=== PATIENT | male | born 1995 | race Caucasian/White ===

== ENCOUNTER → 2020-06-25 | Outpatient (CLI) | payer OTHER | END | disposition home or self-care (01) | LOC: STAR 15:07 | PROVIDERS: ATTEND Orthopaedic Surgery | DX: Z20.828 Contact with and (suspected) exposure to other viral communicable diseases (principal) | CPT/HCPCS: 87635 ==

== ENCOUNTER 2020-06-29 13:57 | Day surgery (SDC) | payer OTHER ==
[~2020-06-29] VITALS: Ht 190.5 cm; Wt 86.3 kg
[2020-06-29] MEDS ORDERED: NO MEDS PER PATIENT (15:10)
[2020-06-29 15:14] VITALS: BP 137/94
[2020-06-29] MEDS ORDERED: PLEASE ENTER HEIGHT AND WEIGHT MC SCH (15:30)
[2020-06-29] MEDS ORDERED: LACTATED RINGERS 1,000 ML IV SCH (15:30)
[2020-06-29] MEDS ORDERED: CHLORHEXIDINE 15 ML UDC MM ONE (15:30)
[2020-06-29] MEDS ORDERED: MIDAZOLAM 1 MG/ML, 2ML ONE (15:35)
[2020-06-29] MEDS ORDERED: FENTANYL PF 250 MCG/5ML ONE (15:35)
[2020-06-29] MEDS ORDERED: CEFAZOLIN 1,000 MG ONE ×2 (15:36)
[2020-06-29] MEDS ORDERED: PROPOFOL 10 MG/ML, 20ML ONE (15:36)
[2020-06-29] MEDS ORDERED: LABETALOL 5MG/ML, 20ML IV PRN (16:30)
[2020-06-29] MEDS ORDERED: hydrALAzine 20 MG/ML, 1ML IV PRN (16:30)
[2020-06-29] MEDS ORDERED: ONDANSETRON 2MG/ML, 2ML IVPush PRN (16:30)
[2020-06-29] MEDS ORDERED: morphine SULFATE 10 MG/ML, 1ML IVPush PRN (16:30)
[2020-06-29] MEDS ORDERED: ACETAMINOPHEN 325 MG TABLET PO PRN (16:30)
[2020-06-29] MEDS ORDERED: MEPERIDINE/PF 25MG/0.5ML IVPush PRN (16:30)
[2020-06-29] MEDS ORDERED: OXYcodone 5 MG/5 ML ORAL.SOL UDC PO PRN (16:30)
[2020-06-29] MEDS ORDERED: BUPIVACAINE/PF 0.25% ONE (16:37)
[2020-06-29] MEDS ORDERED: LIDOCAINE/PF 1%, 30ML ONE (16:38)
[2020-06-29] MEDS ORDERED: morphine SULFATE/PF 0.5 MG/ML, 10ML ONE (16:38)
[2020-06-29] MEDS ORDERED: KETOROLAC 30 MG/1 ML ONE (17:17)
[2020-06-29] MEDS ORDERED: FENTANYL PF 100 MCG/2ML ONE (18:03)
[2020-06-29] MEDS ORDERED: OXYcodone 5 MG/5 ML ORAL.SOL UDC ONE (18:04)
[2020-06-29] MEDS: FENTANYL PF 100 MCG/2ML IV PRN ×2 (18:07→18:20)
[2020-06-29] MEDS ORDERED: MEPERIDINE/PF 25MG/ML,1ML ONE (18:10)
[2020-06-29] MEDS ORDERED: HYDROmorphone 1 MG/ML, 1ML INJ ONE ×2 (18:30→18:57)
[2020-06-29] MEDS: HYDROmorphone 1 MG/ML, 1ML INJ IVPush PRN ×4 (18:32→18:58)
[2020-06-29] MEDS ORDERED: ONDANSETRON 2MG/ML, 2ML ONE (19:06)
== END 2020-06-29 20:50 | disposition home or self-care (01) ==
LOC: OR 13:57
PROVIDERS: ATTEND Orthopaedic Surgery
DX: S83.200A Bucket-handle tear of unspecified meniscus, current injury, right knee, initial encounter (principal); F17.200 Nicotine dependence, unspecified, uncomplicated; Z79.82 Long term (current) use of aspirin; Z79.891 Long term (current) use of opiate analgesic; Z79.899 Other long term (current) drug therapy; X50.1XXA Overexertion from prolonged static or awkward postures, initial encounter; Y93.89 Activity, other specified; Y92.830 Public park as the place of occurrence of the external cause; Y99.8 Other external cause status
CPT/HCPCS: 29881; J0690; J1170; J1885; J2175; J2250; J2274; J2405; J2704; J3010; J7120